=== PATIENT | male | born 1945 | race Caucasian/White ===

== ENCOUNTER 2017-08-04 12:08 | Inpatient (IN) | payer MEDICARE, MEDICAID ==
[~2017-08-04] VITALS: Ht 182.9 cm; Wt 113.4 kg
--- NOTE | 2017-08-04 12:16 | NUR ---
WEAK X YESTERDAY, "I'M LOSING MY BALANCE". PLACED ON MONITOR
[2017-08-04] MEDS ORDERED: ONDANSETRON HCL/PF 4 MG/2 ML VIAL IVP ONE (13:00)
[2017-08-04] MEDS ORDERED: IV NS 0.9% 1,000 ML BAG IV ONE (13:00)
[2017-08-04 13:23] LABS: EOSINOPHILS % (AUTO) 0.6 % (0.0-6.0); HEMATOCRIT 40 % (39-51); HEMOGLOBIN 13.8 g/dL (13.5-17.5); LYMPHOCYTES # (AUTO) 0.6 /CMM (0.8-4.8); LYMPHOCYTES % (AUTO) 8.5 % (20.0-44.0); MEAN CORPUSCULAR HEMOGLOBIN 32 PG (26.0-33.0); MEAN CORPUSCULAR HGB CONC 35 g/dl (31.0-36.0); MEAN CORPUSCULAR VOLUME 91 fL (80-96); MONOCYTES # (AUTO) 0.8 /CMM (0.1-1.30); MONOCYTES % (AUTO) 11.4 % (2.0-12.0); NEUTROPHILS # (AUTO) 5.7 /CMM (1.8-8.9); NEUTROPHILS % (AUTO) 79.5 % (43.0-81.0); PLATELET COUNT (AUTO) 159 /CMM (150-450); RDW COEFFICIENT OF VARIATION 12.6 (11.5-15.0); RED BLOOD CELL COUNT(AUTO) 4.35 MIL/uL (4.5-6.0); WHITE BLOOD COUNT (AUTO) 7.1 K/uL (4.3-11.0)
[2017-08-04] MEDS ORDERED: ONDANSETRON HCL/PF 4 MG/2 ML VIAL ONE (13:24)
[2017-08-04 13:36] LABS: CALCIUM, SERUM 8.9 mg/dL (8.5-10.1); CARBON DIOXIDE 31 mmol/L (21-32); CHLORIDE 98 mmol/L (98-107); CHOLESTEROL 111 mg/dL (<200); CREATININE 1.7 mg/dL (0.6-1.3); GLUCOSE 193 mg/dL (74-106); HDL CHOLESTEROL 61 mg/dL (40-60); LDL 40 mg/dL (0-99); POTASSIUM 4.1 mmol/L (3.5-5.1); SODIUM SERUM 136 mmol/L (136-145); TRIGLYCERIDES 87 mg/dL (30-150); UREA NITROGEN, BLOOD 26 mg/dL (7-18)
[2017-08-04 13:39] LABS: INR 0.92 (0.87-1.13); PROTHROMBIN TIME 9.6 SECS (9.5-12.7)
[2017-08-04 13:41] LABS: TROPONIN I < 0.017 ng/mL (0.00-0.056)
[2017-08-04 13:42] LABS: ALANINE AMINOTRANSFERASE 34 U/L (12-78); ALBUMIN 3.6 g/dL (3.4-5.0); ALKALINE PHOSPHATASE 97 U/L (46-116); ASPARTATE AMINOTRANSFERASE 34 U/L (15-37); BILIRUBIN,DIRECT 0.1 mg/dL (0.0-0.2); BILIRUBIN,TOTAL 0.5 mg/dL (0.2-1.0)
[2017-08-04] MEDS ORDERED: LISI-607 PO (15:04)
[2017-08-04] MEDS ORDERED: CANA100T PO (15:04)
[2017-08-04] MEDS ORDERED: METF10002 PO (15:04)
[2017-08-04] MEDS ORDERED: OMEP20CA10 PO (15:04)
[2017-08-04] MEDS ORDERED: TAMS0.4C34 PO (15:04)
[2017-08-04] MEDS ORDERED: METO-356 PO (15:04)
[2017-08-04] MEDS ORDERED: AMLO5TAB2 PO (15:04)
[2017-08-04] MEDS ORDERED: INSU100I19 SQ (15:04)
[2017-08-04] MEDS ORDERED: HYDR-548 PO (15:04)
[2017-08-04] MEDS ORDERED: ATOR10TA PO (15:04)
[2017-08-04] MEDS ORDERED: ATEN25TA PO (15:04)
[2017-08-04] MEDS ORDERED: ALLO300T2 PO (15:04)
[2017-08-04] MEDS ORDERED: DULO30CA2 PO (15:04)
[2017-08-04] MEDS ORDERED: DEXTROSE 50%-WATER 50 ML DISP.SYRIN IV PRN (16:00)
[2017-08-04] MEDS: IV NS 0.9% 1,000 ML IV PRN (16:41)
[2017-08-04 17:13] LABS: CALCIUM, SERUM 8.2 mg/dL (8.5-10.1); CARBON DIOXIDE 28 mmol/L (21-32); CHLORIDE 101 mmol/L (98-107); CREATININE 1.4 mg/dL (0.6-1.3); GLUCOSE 172 mg/dL (74-106); POTASSIUM 3.7 mmol/L (3.5-5.1); SODIUM SERUM 137 mmol/L (136-145); UREA NITROGEN, BLOOD 25 mg/dL (7-18)
[2017-08-04] MEDS: BLOOD SUGAR DIAGNOSTIC 1 EACH STRIP VI SCH ×2 (17:26→23:46)
[2017-08-04] MEDS ORDERED: INSULIN REGULAR, HUMAN 100 UNIT/ML 10 ML VIAL ONE (17:30)
[2017-08-04 17:38] LABS: ALANINE AMINOTRANSFERASE 35 U/L (12-78); ALBUMIN 3.2 g/dL (3.4-5.0); ALKALINE PHOSPHATASE 89 U/L (46-116); ASPARTATE AMINOTRANSFERASE 33 U/L (15-37); B-TYPE NATRIURETIC PEPTIDE 248 PG/ML (0-125); BILIRUBIN,TOTAL 0.5 mg/dL (0.2-1.0); TOTAL PROTEIN, SERUM 6.4 g/dL (6.4-8.2)
[2017-08-04 17:47] LABS: CREATINE KINASE MB 1.6 ng/mL (0-3.6); CREATINE KINASE, TOTAL 234 U/L (39-308); THYROID STIMULATING HORMONE 0.765 uIU/mL (0.358-3.74)
[2017-08-04 17:49] LABS: C-REACTIVE PROTEIN 3.3 mg/dL (0.0-0.9)
--- NOTE | 2017-08-04 18:02 | NUR ---
CALLED FOR FOOD TRAY
--- NOTE | 2017-08-04 19:14 | NUR ---
GAVE REPORT TO WILL FOR ANDREA
--- NOTE | 2017-08-04 19:35 | NUR ---
ECHOCARDIOGRAM AT BEDSIDE
[2017-08-04 19:59] LABS: APPEARANCE,URINE Slightly Cloudy (CLEAR); BILIRUBIN,URINE Negative (NEGATIVE); BLOOD, URINE Trace-intact Ery/uL (NEGATIVE); COLOR,URINE Light yellow (YELLOW); KETONES,URINE 15 (NEGATIVE); LEUKOCYTE ESTERASE ,URINE Negative (NEGATIVE); NITRITE, URINE Negative (NEGATIVE); PH,URINE 6.5 (5.0-8.0); PROTEIN,URINE Negative (NEGATIVE); UGLUCOSE 500 MG/DL mg/dL (NEGATIVE)
[2017-08-04 20:14] LABS: BACTERIA,URINE Rare /HPF (None Seen); SQUAMOUS EPITHELIAL CELL,UR Few /HPF (None Seen); WBC,URINE 0-2 /HPF (0-3)
--- NOTE | 2017-08-04 21:17 | NUR ---
REPORT GIVEN TO JOSETTE
--- NOTE | 2017-08-04 21:27 | NUR ---
AWAITING EVS FOR ROOM TO BE CLEARED
--- NOTE | 2017-08-04 21:45 | NUR ---
RN ADMITTING NOTES RECEIVED REPORT FROM HORSE SHOW MANAGER WILL. Pt ARRIVED VIA GURNEY. NO S/S OF ACUTE DISTRESS OR SOB NOTED. Pt IS A/OX3, VERBAL, ABLE TO MAKE NEEDS KNOWN. IV ACCESS ON LAC #18G. ON TELE MONITOR. SAFETY MEASURES IN PLACE. BED LOW, LOCKED, HOB ELEVATED, SIDE RAILS UP, CALL LIGHT AND BEDSIDE TABLE WITHIN REACH. WILL CONTINUE TO MONITOR Pt THROUGHOUT THE SHIFT FOR SAFETY.
[2017-08-04 22:30] VITALS: BP 144/85
--- NOTE | 2017-08-04 23:00 | NUR ---
RN NOTES BG 191. ADMINISTERED ONLY LEVEMIR 20UN.
[2017-08-04] MEDS: ATORVASTATIN 10 MG TABLET PO SCH (23:45)
[2017-08-04] MEDS: INSULIN DETEMIR 100 UNIT/ML CARTRIDGE SQ SCH (23:55)
[2017-08-05] VITALS: BP 137/73
[2017-08-05 04:00] VITALS: BP 130/69
[2017-08-05 05:50] LABS: BASOPHILS % (AUTO) 0.2 % (0.0-2.0); EOSINOPHILS % (AUTO) 0.4 % (0.0-6.0); HEMATOCRIT 38 % (39-51); HEMOGLOBIN 13.1 g/dL (13.5-17.5); LYMPHOCYTES # (AUTO) 0.9 /CMM (0.8-4.8); LYMPHOCYTES % (AUTO) 18.4 % (20.0-44.0); MEAN CORPUSCULAR HEMOGLOBIN 32 PG (26.0-33.0); MEAN CORPUSCULAR HGB CONC 34 g/dl (31.0-36.0); MEAN CORPUSCULAR VOLUME 92 fL (80-96); MONOCYTES # (AUTO) 0.9 /CMM (0.1-1.30); MONOCYTES % (AUTO) 19.3 % (2.0-12.0); NEUTROPHILS # (AUTO) 2.9 /CMM (1.8-8.9); NEUTROPHILS % (AUTO) 61.7 % (43.0-81.0); PLATELET COUNT (AUTO) 144 /CMM (150-450); RDW COEFFICIENT OF VARIATION 12.6 (11.5-15.0); RED BLOOD CELL COUNT(AUTO) 4.13 MIL/uL (4.5-6.0); WHITE BLOOD COUNT (AUTO) 4.7 K/uL (4.3-11.0)
[2017-08-05 06:00] LABS: INR 0.93 (0.87-1.13); PROTHROMBIN TIME 9.7 SECS (9.5-12.7)
[2017-08-05 06:17] LABS: CALCIUM, SERUM 8.6 mg/dL (8.5-10.1); CREATININE 1.3 mg/dL (0.6-1.3); GLUCOSE 135 mg/dL (74-106); UREA NITROGEN, BLOOD 26 mg/dL (7-18)
[2017-08-05 06:27] LABS: CARBON DIOXIDE 27 mmol/L (21-32); CHLORIDE 101 mmol/L (98-107); POTASSIUM 3.5 mmol/L (3.5-5.1); SODIUM SERUM 136 mmol/L (136-145)
--- NOTE | 2017-08-05 06:30 | NUR ---
RN NOTES BG 117. NO INSULIN COVERAGE NEEDED AT THIS TIME.
[2017-08-05] MEDS: IV NS 0.9% 1,000 ML IV PRN ×2 (06:43→20:44)
--- NOTE | 2017-08-05 06:55 | NUR ---
RN CLOSING NOTES NO SIGNIFICANT CHANGES IN Pt's CONDITION THROUGHOUT THE NIGHT. Pt REMAINS STABLE AT THIS TIME. NO S/S OF ACUTE DISTRESS OR SOB NOTED DURING SHIFT. ALL NEEDS MET AND ATTENDED TO. SAFETY MEASURES IN PLACE. TELE READING SR WITH PAC 90s. WILL ENDORSE TO DAYSHIFT RN FOR Pt's ANDREA.
[2017-08-05 07:00] VITALS: BP 141/72
[2017-08-05] MEDS: BLOOD SUGAR DIAGNOSTIC 1 EACH STRIP VI SCH ×4 (07:06→22:20)
[2017-08-05 08:00] VITALS: BP 141/72
[2017-08-05] MEDS ORDERED: MECLIZINE HCL 12.5 MG TABLET PO PRN (08:30)
[2017-08-05 09:24] LABS: BILIRUBIN,DIRECT 0.1 mg/dL (0.0-0.2); BILIRUBIN,TOTAL 0.5 mg/dL (0.2-1.0); MAGNESIUM 1.9 mg/dL (1.8-2.4); PHOSPHORUS 3.5 mg/dL (2.5-4.9); TOTAL PROTEIN, SERUM 6.4 g/dL (6.4-8.2)
[2017-08-05] MEDS: TAMSULOSIN 0.4 MG CAP.SR.24H PO SCH (09:56)
[2017-08-05] MEDS: INSULIN DETEMIR 100 UNIT/ML CARTRIDGE SQ SCH ×2 (09:56→22:25)
[2017-08-05] MEDS: ALLOPURINOL 100 MG TABLET PO SCH (09:56)
[2017-08-05] MEDS: ASPIRIN EC 325 MG TABLET.DR PO SCH (09:57)
[2017-08-05] MEDS: PANTOPRAZOLE 40 MG TABLET.DR PO SCH (09:57)
[2017-08-05] MEDS: DULOXETINE HCL 30 MG CAPSULE.DR PO SCH (09:57)
[2017-08-05] MEDS: LISINOPRIL (5MG) 5 MG TABLET PO SCH (09:57)
[2017-08-05] MEDS: HYDROCODONE/APAP 10/325MG 1 EA TABLET PO PRN ×2 (10:44→23:53)
[2017-08-05] MEDS: *INSULIN REGULAR(HUMULIN R)HUM 100 UNIT/ML VIAL SQ PRN (13:20)
[2017-08-05] MEDS: INSULIN REGULAR, HUMAN 100 UNIT/ML 3 ML VIAL SQ PRN ×2 (13:23→17:55)
[2017-08-05 16:00] VITALS: BP 134/75
--- NOTE | 2017-08-05 17:30 | NUR ---
DR. GASPAR IN TO SEE PT. ORDERS GIVEN.PT. DEFERRING MRI TODAY DUE TO RAIN.
--- NOTE | 2017-08-05 19:25 | NUR ---
RN OPENING NOTES PT RESTING IN BED NO COMPLAINTS OF PAIN, SOB, OR DISTRESS AT THIS TIME. PT HAS L AC #18 RUNNING NS @75ML/HR. SAFETY PRECAUTIONS IN PLACE. BED IN LOW LOCKED POSITION, X2 SIDERAILS UP, AND CALL LIGHT WITHIN REACH. WILL CONTINUE TO MONITOR.
[2017-08-05 20:08] VITALS: BP 143/82
[2017-08-05] MEDS: ATORVASTATIN 10 MG TABLET PO SCH (22:18)
[2017-08-06] MEDS ORDERED: GUAIFENESIN/D-METHORPHAN HB 5 ML UDC PO PRN (00:30)
[2017-08-06] MEDS ORDERED: GUAIFENESIN/D-METHORPHAN HB 5 ML UDC ONE (00:37)
[2017-08-06] MEDS: BLOOD SUGAR DIAGNOSTIC 1 EACH STRIP VI SCH ×3 (06:40→17:56)
--- NOTE | 2017-08-06 07:20 | NUR ---
RN CLOSING NOTES PT RESTING IN BED NO COMPLAINTS OF PAIN, SOB, OR DISTRESS AT THIS TIME. PT HAS L AC #18 RUNNING NS @75ML/HR. SAFETY PRECAUTIONS IN PLACE. BED IN LOW LOCKED POSITION, X2 SIDERAILS UP, AND CALL LIGHT WITHIN REACH. WILL ENDORSE TO DAY SHIFT NURSE FOR CONTINUITY OF CARE.
--- NOTE | 2017-08-06 07:30 | NUR ---
MS/RN OPENING NOTE RECEIVED PATIENT SLEEPING. RESPONSIVE TO VERBAL STIMULI. PATIENT SI ALERT AND ORIENTED X3. RESPIRATION REGULAR AND UNLABORED. DENIES SOB, PAIN AT THIS TIME. IN NO APPARENT DISTRESS. LAC #18 PATENT AND IV INFUSING WITH NO S/SX INFILTRATION. BED LOW AND LOCKED. SIDE RAIL UP X2. CALL LIGHT WITHIN REACH. WILL CONTINUE TO MONITOR.
[2017-08-06 08:00] VITALS: BP 149/79
[2017-08-06] MEDS: PANTOPRAZOLE 40 MG TABLET.DR PO SCH (08:38)
[2017-08-06] MEDS: DULOXETINE HCL 30 MG CAPSULE.DR PO SCH (08:38)
[2017-08-06] MEDS: TAMSULOSIN 0.4 MG CAP.SR.24H PO SCH (08:39)
[2017-08-06] MEDS: LISINOPRIL (5MG) 5 MG TABLET PO SCH (08:39)
[2017-08-06] MEDS: ASPIRIN EC 325 MG TABLET.DR PO SCH (08:39)
[2017-08-06] MEDS: ALLOPURINOL 100 MG TABLET PO SCH (08:40)
[2017-08-06] MEDS: INSULIN DETEMIR 100 UNIT/ML CARTRIDGE SQ SCH (08:42)
--- NOTE | 2017-08-06 09:30 | NUR ---
MS/RN S/B Dr Lombardo Seen by Dr Lombardo - patient cleared for discharge from cardiology standpoint.
[2017-08-06 11:21] LABS: CARBON DIOXIDE 28 mmol/L (21-32); CHLORIDE 103 mmol/L (98-107); POTASSIUM 3.5 mmol/L (3.5-5.1); SODIUM SERUM 139 mmol/L (136-145)
[2017-08-06 11:22] LABS: CALCIUM, SERUM 8.9 mg/dL (8.5-10.1); CREATININE 1.2 mg/dL (0.6-1.3); GLUCOSE 181 mg/dL (74-106); UREA NITROGEN, BLOOD 18 mg/dL (7-18)
[2017-08-06 11:23] LABS: ALANINE AMINOTRANSFERASE 4 U/L (12-78); ALBUMIN 3.5 g/dL (3.4-5.0); ALKALINE PHOSPHATASE 94 U/L (46-116); ASPARTATE AMINOTRANSFERASE 43 U/L (15-37); BILIRUBIN,TOTAL 0.6 mg/dL (0.2-1.0); MAGNESIUM 1.8 mg/dL (1.8-2.4); PHOSPHORUS 3.3 mg/dL (2.5-4.9); TOTAL PROTEIN, SERUM 7.2 g/dL (6.4-8.2)
[2017-08-06 12:23] LABS: EOSINOPHILS % (AUTO) 0.3 % (0.0-6.0); HEMATOCRIT 42 % (39-51); HEMOGLOBIN 14.7 g/dL (13.5-17.5); LYMPHOCYTES # (AUTO) 0.9 /CMM (0.8-4.8); LYMPHOCYTES % (AUTO) 13.5 % (20.0-44.0); MEAN CORPUSCULAR HEMOGLOBIN 31 PG (26.0-33.0); MEAN CORPUSCULAR HGB CONC 35 g/dl (31.0-36.0); MEAN CORPUSCULAR VOLUME 90 fL (80-96); MONOCYTES # (AUTO) 0.6 /CMM (0.1-1.30); MONOCYTES % (AUTO) 9.2 % (2.0-12.0); NEUTROPHILS # (AUTO) 5.2 /CMM (1.8-8.9); PLATELET COUNT (AUTO) 147 /CMM (150-450); RDW COEFFICIENT OF VARIATION 11.9 (11.5-15.0); RED BLOOD CELL COUNT(AUTO) 4.68 MIL/uL (4.5-6.0); WHITE BLOOD COUNT (AUTO) 6.7 K/uL (4.3-11.0)
[2017-08-06] MEDS ORDERED: ASPI-1152 PO (15:30)
[2017-08-06 16:03] VITALS: BP 131/89
--- NOTE | 2017-08-06 16:30 | NUR ---
MS/RN S/B Dr Santiago Seen by Dr Santiago - patient to be discharged home today and follow up with primary care doctor in 1-2 weeks.
--- NOTE | 2017-08-06 17:17 | NUR ---
MS/RN Exit care Exit care prepared, chart copied ready for discharge later today.
[2017-08-06] MEDS: *INSULIN REGULAR(HUMULIN R)HUM 100 UNIT/ML VIAL SQ PRN (18:04)
--- NOTE | 2017-08-06 19:27 | NUR ---
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 Heplock and name bands removed. All personal belongings signed for on belongings list. Education provided to patient about the importance of making follow up appointment with primary care doctor, also educated about signs and symptoms and when to return to the nearest emergency room. Stated understanding of all of the above. Escorted to main lobby by ERIC.
== END 2017-08-06 19:30 | disposition home or self-care (01) | DRG 149 ==
LOC: ER 12:17 → OBSER 15:16 → TELE 20:48 → MED 08-05 09:10
PROVIDERS: ADMIT Internal Medicine; ATTEND Internal Medicine
DX: H81.399 Other peripheral vertigo, unspecified ear (principal); N17.0 Acute kidney failure with tubular necrosis; E44.0 Moderate protein-calorie malnutrition; D68.59 Other primary thrombophilia; E11.22 Type 2 diabetes mellitus with diabetic chronic kidney disease; E11.51 Type 2 diabetes mellitus with diabetic peripheral angiopathy without gangrene; J45.909 Unspecified asthma, uncomplicated; Z91.81 History of falling; N18.2 Chronic kidney disease, stage 2 (mild); I12.9 Hypertensive chronic kidney disease with stage 1 through stage 4 chronic kidney disease, or unspecified chronic kidney disease; N40.0 Benign prostatic hyperplasia without lower urinary tract symptoms; E78.5 Hyperlipidemia, unspecified; Z98.890 Other specified postprocedural states; Z79.899 Other long term (current) drug therapy; Z79.4 Long term (current) use of insulin; H81.10 Benign paroxysmal vertigo, unspecified ear; R07.89 Other chest pain; E66.9 Obesity, unspecified; Z68.33 Body mass index [BMI] 33.0-33.9, adult
CPT/HCPCS: 36415; 70450-TC; 70551-TC; 71045-TC; 80048-TC; 80053-TC; 80061-TC; 80076-TC; 80305; 81000-TC; 82550-TC; 82553-TC; 82962-TC; 83735-TC; 83880; 84100-TC; 84443-TC; 84484-TC; 85025-TC; 85652-TC; 85730-TC; 86140-TC; 87081-TC; 92611-TC; 93307-TC; 93880-TC; A4606; J1815; J2405; J7030; Z7610

== ENCOUNTER 2018-03-21 18:04 | Emergency (ER) | payer MEDICARE, MEDICAID ==
[~2018-03-21] VITALS: Ht 182.9 cm; Wt 108.9 kg
[2018-03-21 18:04] VITALS: BP 112/56
[~2018-03-21 18:04] MED LIST: ALLO300T2 PO; AMLO5TAB2 PO; ASPI-1152 PO; ATEN25TA PO; ATOR10TA PO; DULO30CA2 PO; HYDR-548 PO; INSU100I19 SQ; LISI-607 PO; METF10004 PO; METO-356 PO; OMEP20CA10 PO; TAMS0.4C34 PO
[2018-03-21] MEDS ORDERED: KETOROLAC TROMETHAMINE INJ 60 MG/2 ML VIAL IM ONE (20:00)
[2018-03-21] MEDS ORDERED: KETOROLAC TROMETHAMINE INJ 30 MG/ML VIAL ONE (20:28)
== END 2018-03-21 21:03 | disposition home or self-care (01) ==
LOC: ER 18:10
DX: M47.816 Spondylosis without myelopathy or radiculopathy, lumbar region (principal); M54.9 Dorsalgia, unspecified; I10 Essential (primary) hypertension; Z95.5 Presence of coronary angioplasty implant and graft; J45.909 Unspecified asthma, uncomplicated; E11.9 Type 2 diabetes mellitus without complications; Z79.82 Long term (current) use of aspirin; Z79.4 Long term (current) use of insulin; W18.30XA Fall on same level, unspecified, initial encounter; Y93.89 Activity, other specified; Y92.89 Other specified places as the place of occurrence of the external cause; Y99.8 Other external cause status
CPT/HCPCS: 71045; 72100; 96372; 99284; A4606; J1885; Z7610